=== PATIENT | female | born 1955 | race Caucasian/White ===

== ENCOUNTER → 2018-10-03 | Outpatient (CLI) | payer BC, SELFPAY ==
[2018-10-05 12:07] LABS: SJOGREN'S Anti-SS-A test 0.2 AI (0.0-0.9)
[2018-10-07 13:39] LABS: SJOGREN'S Anti-SS-B test < 0.2 AI (0.0-0.9)
== END | disposition home or self-care (01) ==
PROVIDERS: Family Provider Family Medicine; PCP Family Medicine; Referring Provider Otolaryngology; Visit Provider Otolaryngology
DX: K11.7 Disturbances of salivary secretion (principal)
CPT/HCPCS: 36415; 86235